=== PATIENT | male | born 2000 | race Caucasian/White ===

== ENCOUNTER → 2024-05-04 | Outpatient (CLI) | payer OTHER | END | disposition home or self-care (01) | LOC: RADMN 09:13 | PROVIDERS: ATTEND Chiropractor | DX: S82.451D Displaced comminuted fracture of shaft of right fibula, subsequent encounter for closed fracture with routine healing (principal); X58.XXXD Exposure to other specified factors, subsequent encounter | CPT/HCPCS: 73590-TC ==